=== PATIENT | female | born 1985 | race African-American/Black ===

== ENCOUNTER 2016-07-22 10:33 | Emergency (ER) | payer MEDICAID ==
[~2016-07-22] VITALS: Ht 167.6 cm; Wt 76.3 kg
[~2016-07-22 10:33] MED LIST: LURA40TA PO; QUET200T4 PO
[2016-07-22] MEDS ORDERED: FAMOTIDINE 20 MG/2 ML ONE (11:14)
[2016-07-22] MEDS ORDERED: ONDANSETRON 2MG/ML, 2ML ONE (11:14)
[2016-07-22] MEDS ORDERED: MAALOX/HYOSCYAMINE/LIDOCAINE 45 ML BOTTLE ONE (11:14)
[2016-07-22] MEDS ORDERED: ONDANSETRON 2MG/ML, 2ML IVPush ONE (11:30)
[2016-07-22] MEDS ORDERED: MAALOX/HYOSCYAMINE/LIDOCAINE 45 ML BOTTLE PO ONE (11:30)
[2016-07-22] MEDS ORDERED: FAMOTIDINE 20 MG/2 ML IVP ONE (11:30)
[2016-07-22 11:58] LABS: BLOOD UREA NITROGEN 8 mg/dL (7-18)
[2016-07-22 12:04] LABS: ASPARTATE AMINO TRANSFERASE 12 U/L (15-37)
[2016-07-22 12:49] VITALS: BP 96/65
== END 2016-07-22 12:51 | disposition home or self-care (01) ==
LOC: ED 10:57
DX: K29.00 Acute gastritis without bleeding (principal)
CPT/HCPCS: 36415; 76700; 80053; 81001; 83690; 84703; 85025; 96374; 96375; 99285; J2405; S0028

== ENCOUNTER 2016-08-01 11:16 | Emergency (ER) | payer MEDICAID ==
[~2016-08-01] VITALS: Ht 167.6 cm; Wt 75.3 kg
[2016-08-01] MEDS ORDERED: TRAZ50TA18 PO (11:55)
[2016-08-01 12:00] VITALS: BP 116/75
[2016-08-01] MEDS ORDERED: FAMOTIDINE 20 MG/2 ML IVP ONE (12:00)
[2016-08-01] MEDS ORDERED: SODIUM CHLORIDE FLUSH 10ML SYR IVF ONE (12:00)
[2016-08-01] MEDS ORDERED: ONDANSETRON 2MG/ML, 2ML IVPush ONE (12:00)
[2016-08-01] MEDS ORDERED: FAMOTIDINE 20 MG/2 ML ONE (12:05)
[2016-08-01] MEDS ORDERED: ONDANSETRON 2MG/ML, 2ML ONE (12:05)
[2016-08-01 12:21] LABS: PATH.CAST-FLAG NOT PRESENT; SPERM-FLAG NOT PRESENT; SRC-FLAG NOT PRESENT; XTAL-FLAG NOT PRESENT; YLC-FLAG NOT PRESENT
[2016-08-01 12:49] LABS: ASPARTATE AMINO TRANSFERASE 11 U/L (15-37); BLOOD UREA NITROGEN 5 mg/dL (7-18)
== END 2016-08-01 13:26 | disposition home or self-care (01) ==
LOC: ED 13:15
DX: K29.00 Acute gastritis without bleeding (principal); Z87.440 Personal history of urinary (tract) infections
CPT/HCPCS: 36415; 80053; 81001; 83690; 84703; 85025; 87086; 96374; 96375; 99284; J2405; S0028

== ENCOUNTER 2016-08-09 20:10 | Emergency (ER) | payer MEDICAID ==
[~2016-08-09] VITALS: Ht 167.6 cm; Wt 76.4 kg
[~2016-08-09 20:10] MED LIST changes: +TRAZ50TA18 PO
[2016-08-09 20:12] VITALS: BP 122/82
[2016-08-09] MEDS ORDERED: FAMOTIDINE 20 MG/2 ML IVP ONE (20:30)
[2016-08-09] MEDS ORDERED: ONDANSETRON 2MG/ML, 2ML IVPush ONE (20:30)
[2016-08-09] MEDS ORDERED: SODIUM CHLORIDE 0.9% 1,000ML IVBOLUS ONE (20:30)
[2016-08-09] MEDS ORDERED: MAALOX/HYOSCYAMINE/LIDOCAINE 45 ML BOTTLE PO ONE (20:30)
[2016-08-09] MEDS ORDERED: FAMOTIDINE 20 MG/2 ML ONE (20:31)
[2016-08-09] MEDS ORDERED: ONDANSETRON 2MG/ML, 2ML ONE (20:31)
[2016-08-09] MEDS ORDERED: MAALOX/HYOSCYAMINE/LIDOCAINE 45 ML BOTTLE ONE (20:31)
[2016-08-09 21:05] LABS: ASPARTATE AMINO TRANSFERASE 13 U/L (15-37); BLOOD UREA NITROGEN 5 mg/dL (7-18)
== END 2016-08-09 22:48 | disposition home or self-care (01) ==
LOC: ED 22:42
DX: K29.00 Acute gastritis without bleeding (principal); Z87.891 Personal history of nicotine dependence
CPT/HCPCS: 36415; 80053; 81001; 83690; 84703; 85025; 96361; 96374; 96375; 99285; J2405; J7030; S0028

== ENCOUNTER 2016-08-16 12:49 | Emergency (ER) | payer MEDICAID ==
[~2016-08-16] VITALS: Ht 167.6 cm; Wt 75.7 kg
[2016-08-16 12:52] VITALS: BP 128/81
[2016-08-16 13:56] LABS: HCG UR OBC PASS
== END 2016-08-16 14:50 | disposition home or self-care (01) ==
LOC: ED 14:45
DX: N30.00 Acute cystitis without hematuria (principal)
CPT/HCPCS: 81001; 81025; 87086; 99284

== ENCOUNTER 2016-08-21 20:55 | Emergency (ER) | payer MEDICAID ==
[~2016-08-21] VITALS: Ht 167.6 cm; Wt 62.0 kg
[2016-08-21 21:03] VITALS: BP 142/95
== END 2016-08-21 22:53 | disposition home or self-care (01) ==
LOC: ED 22:43
DX: T76.21XA Adult sexual abuse, suspected, initial encounter (principal); F20.9 Schizophrenia, unspecified; F17.200 Nicotine dependence, unspecified, uncomplicated; Y04.8XXA Assault by other bodily force, initial encounter; Y93.89 Activity, other specified; Y92.89 Other specified places as the place of occurrence of the external cause; Y99.8 Other external cause status
CPT/HCPCS: 99283

== ENCOUNTER 2016-09-03 18:04 | Emergency (ER) | payer MEDICAID | END 2016-09-03 21:24 | LOC: ED 18:04 | DX: N93.8 Other specified abnormal uterine and vaginal bleeding (principal); F20.9 Schizophrenia, unspecified | CPT/HCPCS: 99281 ==

== ENCOUNTER 2016-09-04 09:45 | Emergency (ER) | payer MEDICAID ==
[2016-09-06 08:53] LABS: RHEUMATOID FACTOR SCREEN NEGATIVE (NEGATIVE)
== END 2016-09-04 10:35 ==
LOC: ED 09:45
DX: O20.0 Threatened abortion (principal); Z3A.00 Weeks of gestation of pregnancy not specified
CPT/HCPCS: 36415; 84702; 86430; 99284

== ENCOUNTER 2016-09-11 16:35 | Emergency (ER) | payer MEDICAID ==
[~2016-09-11] VITALS: Ht 167.6 cm; Wt 74.2 kg
[2016-09-11] MEDS ORDERED: SODIUM CHLORIDE 0.9% 1,000ML IVBOLUS ONE (17:00)
[2016-09-11] MEDS ORDERED: SODIUM CHLORIDE FLUSH 10ML SYR IVF ONE (17:00)
[2016-09-11 17:39] LABS: ASPARTATE AMINO TRANSFERASE 11 U/L (15-37); BLOOD UREA NITROGEN 5 mg/dL (7-18)
[2016-09-11 18:07] LABS: GIANT PLATELETS 1+
[2016-09-11 19:23] VITALS: BP 120/75
== END 2016-09-11 19:27 | disposition home or self-care (01) ==
LOC: ED 19:00
DX: R10.30 Lower abdominal pain, unspecified (principal); Z85.42 Personal history of malignant neoplasm of other parts of uterus
CPT/HCPCS: 36415; 80053; 81001; 84703; 85025; 99284

== ENCOUNTER 2016-09-16 16:14 | Emergency (ER) | payer MEDICAID ==
[~2016-09-16] VITALS: Ht 167.6 cm; Wt 73.5 kg
[2016-09-16] MEDS ORDERED: MAALOX/HYOSCYAMINE/LIDOCAINE 45 ML BOTTLE ONE (17:22)
[2016-09-16] MEDS ORDERED: MAALOX/HYOSCYAMINE/LIDOCAINE 45 ML BOTTLE PO ONE (17:30)
[2016-09-16 17:36] LABS: ASPARTATE AMINO TRANSFERASE 12 U/L (15-37); BLOOD UREA NITROGEN 8 mg/dL (7-18)
[2016-09-16 18:42] VITALS: BP 115/68
== END 2016-09-16 18:48 | disposition home or self-care (01) ==
LOC: ED 17:15
DX: K29.50 Unspecified chronic gastritis without bleeding (principal)
CPT/HCPCS: 36415; 80053; 83690; 84703; 85025; 99284

== ENCOUNTER 2016-09-23 10:04 | Emergency (ER) | payer MEDICAID ==
[~2016-09-23] VITALS: Ht 167.6 cm; Wt 73.4 kg
[2016-09-23] MEDS ORDERED: MAALOX/HYOSCYAMINE/LIDOCAINE 45 ML BOTTLE PO ONE (11:00)
[2016-09-23] MEDS ORDERED: FAMOTIDINE 20 MG/2 ML IVPush ONE (11:00)
[2016-09-23 11:09] LABS: ASPARTATE AMINO TRANSFERASE 13 U/L (15-37); BLOOD UREA NITROGEN 7 mg/dL (7-18)
[2016-09-23] MEDS ORDERED: FAMOTIDINE 20 MG TABLET ONE (11:12)
[2016-09-23] MEDS ORDERED: MAALOX/HYOSCYAMINE/LIDOCAINE 45 ML BOTTLE ONE (11:12)
[2016-09-23] MEDS ORDERED: FAMOTIDINE 20 MG TABLET PO ONE (11:30)
[2016-09-23 13:38] VITALS: BP 118/76
== END 2016-09-23 13:44 | disposition home or self-care (01) ==
LOC: ED 10:29
DX: K29.00 Acute gastritis without bleeding (principal); F17.200 Nicotine dependence, unspecified, uncomplicated; K62.89 Other specified diseases of anus and rectum; F20.9 Schizophrenia, unspecified
CPT/HCPCS: 36415; 80053; 83690; 85025; 99284

== ENCOUNTER 2016-10-14 14:11 | Emergency (ER) | payer MEDICAID ==
[~2016-10-14] VITALS: Ht 167.6 cm; Wt 77.8 kg
[2016-10-14] MEDS ORDERED: ZOLP-413 PO (15:36)
[2016-10-14 16:20] VITALS: BP 120/50
== END 2016-10-14 16:59 | disposition home or self-care (01) ==
LOC: ED 16:03
DX: R30.0 Dysuria (principal)
CPT/HCPCS: 81001; 99283

== ENCOUNTER 2016-11-10 09:21 | Emergency (ER) | payer MEDICAID ==
[~2016-11-10] VITALS: Ht 167.6 cm; Wt 76.3 kg
[~2016-11-10 09:21] MED LIST changes: +ZOLP-413 PO
[2016-11-10 10:07] LABS: HEMATOCRIT 37.8 % (34.6-47.8); HEMOGLOBIN 12.3 g/dL (11.7-16.4); WHITE BLOOD COUNT 3.9 x10^3/uL (3.4-10)
[2016-11-10 10:14] LABS: ASPARTATE AMINO TRANSFERASE 11 U/L (15-37); BLOOD UREA NITROGEN 7 mg/dL (7-18)
[2016-11-10 12:14] VITALS: BP 115/71
== END 2016-11-10 12:51 | disposition home or self-care (01) ==
LOC: ED 09:35
DX: R10.2 Pelvic and perineal pain (principal)
CPT/HCPCS: 36415; 76857; 80053; 81001; 83690; 84703; 85025; 99285

== ENCOUNTER 2016-11-17 09:09 | Emergency (ER) | payer MEDICAID ==
[~2016-11-17] VITALS: Ht 167.6 cm; Wt 76.0 kg
[2016-11-17 10:58] LABS: HEMATOCRIT 39.1 % (34.6-47.8); HEMOGLOBIN 12.6 g/dL (11.7-16.4); WHITE BLOOD COUNT 3.6 x10^3/uL (3.4-10)
[2016-11-17 11:42] VITALS: BP 110/81
== END 2016-11-17 11:43 | disposition home or self-care (01) ==
LOC: ED 10:32
DX: K59.00 Constipation, unspecified (principal); Z90.710 Acquired absence of both cervix and uterus
CPT/HCPCS: 36415; 74176; 81001; 85025; 99285

== ENCOUNTER 2016-11-20 09:28 | Emergency (ER) | payer MEDICAID ==
[~2016-11-20] VITALS: Ht 167.6 cm; Wt 76.1 kg
[2016-11-20 09:29] VITALS: BP 112/72
== END 2016-11-20 10:38 | disposition home or self-care (01) ==
LOC: ED 09:42
DX: K92.1 Melena (principal); F20.9 Schizophrenia, unspecified; Z85.9 Personal history of malignant neoplasm, unspecified
CPT/HCPCS: 99281; 99283

== ENCOUNTER 2016-12-09 14:42 | Emergency (ER) | payer MEDICAID ==
[~2016-12-09] VITALS: Ht 167.6 cm; Wt 77.5 kg
[2016-12-09 15:35] LABS: HEMATOCRIT 37.9 % (34.6-47.8); HEMOGLOBIN 12.6 g/dL (11.7-16.4); WHITE BLOOD COUNT 5.7 x10^3/uL (3.4-10)
[2016-12-09 15:44] LABS: BLOOD UREA NITROGEN 7 mg/dL (7-18)
[2016-12-09 16:34] VITALS: BP 120/88
== END 2016-12-09 16:36 | disposition home or self-care (01) ==
LOC: ED 15:14
DX: N30.00 Acute cystitis without hematuria (principal)
CPT/HCPCS: 36415; 76830; 80048; 81001; 82040; 84703; 85025; 87086; 99285

== ENCOUNTER 2017-03-09 10:51 | Emergency (ER) | payer MEDICAID ==
[~2017-03-09] VITALS: Ht 167.6 cm; Wt 88.6 kg
[2017-03-09 10:52] VITALS: BP 128/87
[2017-03-09 13:25] LABS: HCG UR LOT HCG7030192
[2017-03-09 13:40] LABS: HCG UR OBC PASS
[2017-03-09] MEDS ORDERED: ACETAMINOPHEN 325 MG TABLET ONE (14:11)
[2017-03-09] MEDS ORDERED: ACETAMINOPHEN 325 MG TABLET PO ONE (14:30)
== END 2017-03-09 14:29 | disposition home or self-care (01) ==
LOC: ED 13:25
DX: R10.30 Lower abdominal pain, unspecified (principal)
CPT/HCPCS: 81001; 81025; 99284

== ENCOUNTER 2017-12-22 11:48 | Emergency (ER) | payer MEDICAID, OTHER ==
[~2017-12-22] VITALS: Ht 167.6 cm; Wt 94.4 kg
[~2017-12-22 11:48] MED LIST changes: +TRAZ-136 PO; -TRAZ50TA18 PO
[2017-12-22 11:53] VITALS: BP 130/79
[2017-12-22 12:29] LABS: MICROSCOPIC AUTO
[2017-12-22 12:32] LABS: CULTURE INDICATED? NO
== END 2017-12-22 13:09 | disposition home or self-care (01) ==
LOC: ED 13:00
DX: B35.6 Tinea cruris (principal); F20.9 Schizophrenia, unspecified; R73.09 Other abnormal glucose; Z85.9 Personal history of malignant neoplasm, unspecified; Z90.710 Acquired absence of both cervix and uterus
CPT/HCPCS: 81001; 82962; 99283

== ENCOUNTER 2018-01-09 10:11 | Emergency (ER) | payer MEDICAID ==
[~2018-01-09] VITALS: Ht 167.6 cm; Wt 93.5 kg
[2018-01-09 10:17] VITALS: BP 122/85
== END 2018-01-09 11:52 | disposition home or self-care (01) ==
LOC: ED 10:29
DX: B35.6 Tinea cruris (principal); L03.115 Cellulitis of right lower limb; F20.9 Schizophrenia, unspecified; Z90.710 Acquired absence of both cervix and uterus
CPT/HCPCS: 99283

== ENCOUNTER 2018-01-12 18:35 | Emergency (ER) | payer MEDICAID ==
[~2018-01-12] VITALS: Ht 167.6 cm; Wt 93.2 kg
[2018-01-12 18:52] VITALS: BP 117/98
== END 2018-01-12 19:53 | disposition home or self-care (01) ==
LOC: ED 19:14
DX: B36.9 Superficial mycosis, unspecified (principal); H62.43 Otitis externa in other diseases classified elsewhere, bilateral; H61.23 Impacted cerumen, bilateral
CPT/HCPCS: 69209; 99283

== ENCOUNTER 2018-01-27 12:12 | Emergency (ER) | payer MEDICAID ==
[~2018-01-27] VITALS: Ht 167.6 cm; Wt 91.7 kg
[2018-01-27 12:46] LABS: BASOPHILS # (AUTO) 0.02 x10^3/uL (0-0.1); BASOPHILS % (AUTO) 0 % (0-1); EOSINOPHILS # (AUTO) 0.07 x10^3/uL (0-0.4); EOSINOPHILS % (AUTO) 2 % (1-7); LYMPHOCYTES % (AUTO) 43 % (22-44); MD NO; MEAN CORPUSCULAR HEMOGLOBIN 28.2 pg (27.0-34.8); MEAN CORPUSCULAR HGB CONC 32.5 g/dL (32.4-35.8); MEAN CORPUSCULAR VOLUME 86.7 fL (80-100); MEAN PLATELET VOLUME 9.3 fL (7.4-10.4); MONOCYTES # (AUTO) 0.41 x10^3/uL (0.2-0.8); MONOCYTES % (AUTO) 9 % (2-9); NEUTROPHILS # (AUTO) 2.14 x10^3/uL (1.8-6.8); NEUTROPHILS % (AUTO) 46 % (42-75); PLATELET COUNT 254 x10^3/uL (130-400); RED BLOOD COUNT 4.73 x10^6/uL (3.82-5.3); RED CELL DISTRIBUTION WIDTH 12.6 % (9.6-15.2)
[2018-01-27 12:56] LABS: ALANINE AMINOTRANSFERASE 21 U/L (12-78); ALBUMIN 3.8 g/dL (3.4-5.0); ANION GAP 7 mmol/L (5-15); CALCIUM 8.8 mg/dL (8.5-10.1); CHLORIDE 107 mmol/L (98-107)
[2018-01-27 12:58] LABS: ALKALINE PHOSPHATASE 106 U/L (45-117); BILIRUBIN,TOTAL 0.3 mg/dL (0.2-1.0); TOTAL PROTEIN 8.3 g/dL (6.4-8.2)
[2018-01-27 15:48] LABS: HCG UR SG 1.021 (1.003-1.030); MICROSCOPIC NOT IND
[2018-01-27 15:58] LABS: CULTURE INDICATED? NO
[2018-01-27] MEDS ORDERED: [UNRECOGNIZED DRUG - REMARK] (16:19)
[2018-01-27 17:18] VITALS: BP 127/74
== END 2018-01-27 18:11 | disposition home or self-care (01) ==
LOC: ED 14:55
DX: R10.2 Pelvic and perineal pain (principal)
CPT/HCPCS: 36415; 74176; 80053; 81003; 81025; 85025; 99285

== ENCOUNTER 2018-02-22 12:38 | Emergency (ER) | payer MEDICAID ==
[~2018-02-22] VITALS: Ht 167.6 cm; Wt 90.3 kg
[~2018-02-22 12:38] MED LIST changes: +[UNRECOGNIZED DRUG - REMARK]
[2018-02-22 13:44] LABS: MEAN CORPUSCULAR HEMOGLOBIN 27.9 pg (27.0-34.8); MEAN CORPUSCULAR HGB CONC 32.6 g/dL (32.4-35.8); MEAN CORPUSCULAR VOLUME 85.6 fL (80-100); MEAN PLATELET VOLUME 9.4 fL (7.4-10.4); PLATELET COUNT 246 x10^3/uL (130-400); RED BLOOD COUNT 4.78 x10^6/uL (3.82-5.3); RED CELL DISTRIBUTION WIDTH 13.4 % (9.6-15.2)
[2018-02-22 13:55] LABS: ALBUMIN 3.9 g/dL (3.4-5.0); ANION GAP 4 mmol/L (5-15); CHLORIDE 109 mmol/L (98-107)
[2018-02-22 13:59] LABS: BASOPHILS # (AUTO) 0.02 x10^3/uL (0-0.1); BASOPHILS % (AUTO) 1 % (0-1); EOSINOPHILS # (AUTO) 0.11 x10^3/uL (0-0.4); EOSINOPHILS % (AUTO) 3 % (1-7); LYMPHOCYTES # (AUTO) 2.26 x10^3/uL (1-3.4); LYMPHOCYTES % (AUTO) 56 % (22-44); MD SCAN; MONOCYTES # (AUTO) 0.52 x10^3/uL (0.2-0.8); MONOCYTES % (AUTO) 13 % (2-9); NEUTROPHILS # (AUTO) 1.16 x10^3/uL (1.8-6.8); NEUTROPHILS % (AUTO) 28 % (42-75)
[2018-02-22 14:01] LABS: ALANINE AMINOTRANSFERASE 25 U/L (12-78); ALKALINE PHOSPHATASE 101 U/L (45-117); BILIRUBIN,TOTAL 0.3 mg/dL (0.2-1.0); CREATININE 1.12 mg/dL (0.55-1.02); TOTAL PROTEIN 8.4 g/dL (6.4-8.2)
[2018-02-22 15:43] LABS: MICROSCOPIC INDICATED
[2018-02-22 15:49] LABS: CULTURE INDICATED? NO
[2018-02-22] MEDS ORDERED: OMNIPAQUE 350 MG/ML, 100ML BOTTLE ONE (15:50)
[2018-02-22 17:09] VITALS: BP 136/85
== END 2018-02-22 18:31 | disposition home or self-care (01) ==
LOC: ED 18:26
DX: R10.31 Right lower quadrant pain (principal); R10.32 Left lower quadrant pain; R10.30 Lower abdominal pain, unspecified; Z90.710 Acquired absence of both cervix and uterus; F20.9 Schizophrenia, unspecified
CPT/HCPCS: 36415; 74177; 80053; 81001; 84703; 85025; 99284; Q9967

== ENCOUNTER 2018-02-23 13:31 | Emergency (ER) | payer MEDICAID ==
[~2018-02-23] VITALS: Ht 167.6 cm; Wt 88.9 kg
[2018-02-23 13:45] VITALS: BP 132/77
[2018-02-23] MEDS ORDERED: LORazepam 1MG TABLET PO ONE (14:30)
[2018-02-23] MEDS ORDERED: LORazepam 1MG TABLET ONE (14:46)
== END 2018-02-23 16:32 | disposition home or self-care (01) ==
LOC: ED 14:16
DX: F41.1 Generalized anxiety disorder (principal); F20.9 Schizophrenia, unspecified; Z90.710 Acquired absence of both cervix and uterus
CPT/HCPCS: 99284

== ENCOUNTER 2018-04-06 10:24 | Emergency (ER) | payer MEDICAID ==
[~2018-04-06] VITALS: Ht 167.6 cm; Wt 86.4 kg
[~2018-04-06 10:24] MED LIST changes: -TRAZ-136 PO; +TRAZ50TA66 PO
[2018-04-06 10:32] VITALS: BP 124/89
[2018-04-06] MEDS ORDERED: MAALOX/HYOSCYAMINE/LIDOCAINE 45 ML BTL ONE (10:53)
[2018-04-06] MEDS ORDERED: ONDANSETRON ODT 4 MG ONE (10:54)
--- NOTE | 2018-04-06 11:00 | NUR ---
MEDICATED PT ORDERED BY MD FOR ABDOMINAL PAIN. URINE AND BLOODWORK SENT TO LAB. CALL LIGHT IS WITHIN REACH, NAD NOTED.
[2018-04-06 11:27] LABS: ALANINE AMINOTRANSFERASE 19 U/L (12-78); ALBUMIN 3.6 g/dL (3.4-5.0); ANION GAP 10 mmol/L (5-15); CALCIUM 8.4 mg/dL (8.5-10.1); CHLORIDE 108 mmol/L (98-107); CREATININE 1.11 mg/dL (0.55-1.02)
[2018-04-06] MEDS ORDERED: ONDANSETRON ODT 4 MG PO ONE (11:30)
[2018-04-06] MEDS ORDERED: MAALOX/HYOSCYAMINE/LIDOCAINE 45 ML BTL PO ONE (11:30)
[2018-04-06 11:32] LABS: ALKALINE PHOSPHATASE 78 U/L (45-117); BILIRUBIN,TOTAL 0.4 mg/dL (0.2-1.0); TOTAL PROTEIN 7.5 g/dL (6.4-8.2)
[2018-04-06 11:48] LABS: MICROSCOPIC INDICATED
[2018-04-06 11:50] LABS: BASOPHILS # (AUTO) 0.02 x10^3/uL (0-0.1); BASOPHILS % (AUTO) 1 % (0-1); EOSINOPHILS # (AUTO) 0.06 x10^3/uL (0-0.4); EOSINOPHILS % (AUTO) 2 % (1-7); LYMPHOCYTES # (AUTO) 1.64 x10^3/uL (1-3.4); LYMPHOCYTES % (AUTO) 52 % (22-44); MD SCAN; MEAN CORPUSCULAR HEMOGLOBIN 28.5 pg (27.0-34.8); MEAN CORPUSCULAR HGB CONC 33.5 g/dL (32.4-35.8); MEAN CORPUSCULAR VOLUME 85.1 fL (80-100); MEAN PLATELET VOLUME 9.3 fL (7.4-10.4); MONOCYTES # (AUTO) 0.39 x10^3/uL (0.2-0.8); MONOCYTES % (AUTO) 12 % (2-9); NEUTROPHILS # (AUTO) 1.06 x10^3/uL (1.8-6.8); NEUTROPHILS % (AUTO) 33 % (42-75); PLATELET COUNT 221 x10^3/uL (130-400); RED BLOOD COUNT 4.77 x10^6/uL (3.82-5.3); RED CELL DISTRIBUTION WIDTH 12.9 % (9.6-15.2)
[2018-04-06 11:56] LABS: CULTURE INDICATED? YES
--- NOTE | 2018-04-06 13:17 | NUR ---
PT PRESENTED TO ED WITH MID EPIGASTRIC ABD PAIN X 3 DAYS. PT STATES " WHENEVER I DRINK COFFEE, I VOMIT UP BLACK STUFF." RECEIVED REPORT FROM NADEGE NEWMAN.
== END 2018-04-06 14:24 | disposition home or self-care (01) ==
LOC: ED 10:48
DX: K29.00 Acute gastritis without bleeding (principal)
CPT/HCPCS: 36415; 76700; 80053; 81001; 83690; 84703; 85025; 87086; 99284; Q0162

== ENCOUNTER 2018-04-11 13:35 | Emergency (ER) | payer MEDICAID ==
[~2018-04-11] VITALS: Ht 167.6 cm; Wt 85.0 kg
--- NOTE | 2018-04-11 15:35 | NUR ---
PT TO ROOM FROM LOBBY
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
[2018-04-11 15:51] VITALS: BP 140/60
--- NOTE | 2018-04-11 15:51 | NUR ---
PT PREFERS TO ONLY LET PROVIDER LOOK AT [facility]
--- NOTE | 2018-04-11 15:52 | NUR ---
NO C/O DYSURIA OR DIFFICULTIES WITH URINATION
--- NOTE | 2018-04-11 17:14 | NUR ---
Patient/Caregiver given discharge instructions and they have confirmed that they understand the instructions. Patient ambulatory with steady gait. PT LEFT WITH ALL PERSONAL BELONGINGS.
== END 2018-04-11 17:16 | disposition home or self-care (01) ==
LOC: ED 16:21
DX: B37.3 Candidiasis of vulva and vagina (principal); B35.6 Tinea cruris
CPT/HCPCS: 99283

== ENCOUNTER 2018-04-25 12:00 | Emergency (ER) | payer MEDICAID ==
[~2018-04-25] VITALS: Ht 167.6 cm; Wt 87.1 kg
[2018-04-25 12:08] VITALS: BP 121/88
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
[2018-04-25] MEDS ORDERED: ACETAMINOPHEN 325 MG TABLET PO ONE (12:30)
[2018-04-25] MEDS ORDERED: CLON0.5T11 PO (12:33)
[2018-04-25] MEDS ORDERED: SERT25TA3 PO (12:33)
--- NOTE | 2018-04-25 12:44 | NUR ---
Patient/Caregiver given discharge instructions and they have confirmed that they understand the instructions. Patient ambulatory with steady gait.
[2018-04-25] MEDS ORDERED: ACETAMINOPHEN 325 MG TABLET ONE (12:47)
== END 2018-04-25 12:52 | disposition home or self-care (01) ==
LOC: ED 12:30
DX: M71.552 Other bursitis, not elsewhere classified, left hip (principal); I10 Essential (primary) hypertension
CPT/HCPCS: 99283; J7512

== ENCOUNTER 2018-04-29 12:02 | Emergency (ER) | payer MEDICAID ==
[~2018-04-29] VITALS: Ht 167.6 cm; Wt 88.8 kg
[~2018-04-29 12:02] MED LIST changes: +CLON0.5T11 PO; +SERT25TA3 PO
[2018-04-29 12:06] VITALS: BP 157/91
[2018-04-29 12:51] LABS: CULTURE INDICATED? NO; HCG UR SG 1.011 (1.003-1.030); MICROSCOPIC NOT IND
[2018-04-29] MEDS ORDERED: CEFTRIAXONE 250 MG ONE (13:14)
[2018-04-29] MEDS ORDERED: AZITHROMYCIN 250 MG TABLET ONE (13:15)
[2018-04-29] MEDS ORDERED: CEFTRIAXONE 250 MG IM ONE (13:30)
[2018-04-29] MEDS ORDERED: AZITHROMYCIN 250 MG TABLET PO ONE (13:30)
== END 2018-04-29 13:35 | disposition home or self-care (01) ==
LOC: ED 13:30
DX: R30.0 Dysuria (principal); I10 Essential (primary) hypertension; F20.9 Schizophrenia, unspecified; Z87.891 Personal history of nicotine dependence
CPT/HCPCS: 81003; 81025; 87491; 87591; 96372; 99283; J0696

== ENCOUNTER 2018-05-18 10:38 | Emergency (ER) | payer MEDICAID ==
[~2018-05-18] VITALS: Ht 167.6 cm; Wt 87.0 kg
[2018-05-18 10:46] VITALS: BP 127/83
[2018-05-18] MEDS ORDERED: SEROQUEL PO (11:03)
[2018-05-18] MEDS ORDERED: BP MED PO (11:03)
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
--- NOTE | 2018-05-18 11:19 | NUR ---
DR COY AT BEDSIDE. POC DISCUSSED, ORDERS REC'D
[2018-05-18] MEDS ORDERED: ACETAMINOPHEN 500 MG TABLET ONE (11:22)
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
[2018-05-18] MEDS ORDERED: ACETAMINOPHEN 500 MG TABLET PO ONE (11:30)
--- NOTE | 2018-05-18 12:34 | NUR ---
Patient/Caregiver given discharge instructions and they have confirmed that they understand the instructions. Patient ambulatory with slight limp noted otherwise a steady gait.
== END 2018-05-18 12:35 | disposition home or self-care (01) ==
LOC: ED 11:03
DX: S70.12XA Contusion of left thigh, initial encounter (principal); I10 Essential (primary) hypertension; W50.1XXA Accidental kick by another person, initial encounter; Y93.89 Activity, other specified; Y92.89 Other specified places as the place of occurrence of the external cause; Y99.8 Other external cause status
CPT/HCPCS: 72170; 99283

== ENCOUNTER 2018-05-26 10:44 | Emergency (ER) | payer MEDICAID ==
[~2018-05-26] VITALS: Ht 167.6 cm; Wt 88.9 kg
[~2018-05-26 10:44] MED LIST changes: +BP MED PO; +SEROQUEL PO
[2018-05-26 11:47] LABS: BASOPHILS # (AUTO) 0.02 x10^3/uL (0-0.1); BASOPHILS % (AUTO) 1 % (0-1); EOSINOPHILS # (AUTO) 0.07 x10^3/uL (0-0.4); EOSINOPHILS % (AUTO) 2 % (1-7); LYMPHOCYTES # (AUTO) 2.01 x10^3/uL (1-3.4); LYMPHOCYTES % (AUTO) 49 % (22-44); MD NO; MEAN CORPUSCULAR HEMOGLOBIN 28.1 pg (27.0-34.8); MEAN CORPUSCULAR HGB CONC 32.7 g/dL (32.4-35.8); MEAN PLATELET VOLUME 9.1 fL (7.4-10.4); MONOCYTES # (AUTO) 0.41 x10^3/uL (0.2-0.8); MONOCYTES % (AUTO) 10 % (2-9); NEUTROPHILS # (AUTO) 1.62 x10^3/uL (1.8-6.8); NEUTROPHILS % (AUTO) 39 % (42-75); PLATELET COUNT 228 x10^3/uL (130-400); RED BLOOD COUNT 4.65 x10^6/uL (3.82-5.3); RED CELL DISTRIBUTION WIDTH 13.3 % (9.6-15.2)
--- NOTE | 2018-05-26 11:50 | NUR ---
Pt to 40 from lobby
--- NOTE | 2018-05-26 11:51 | NUR ---
patient arrives to er with reports of weakness for two days. no chest pain. no sob. she is walking well and putting on her gown with good dexterity. patient got in bed, on montor, rails up. patient tearful because she is concerned with new onset weakness.
[2018-05-26 11:53] LABS: MICROSCOPIC INDICATED
[2018-05-26 12:06] LABS: ALBUMIN 3.5 g/dL (3.4-5.0); ANION GAP 5 mmol/L (5-15); CALCIUM 8.5 mg/dL (8.5-10.1); CHLORIDE 109 mmol/L (98-107); CREATININE 0.96 mg/dL (0.55-1.02)
--- NOTE | 2018-05-26 13:02 | NUR ---
patient labs taken, and urine in lab. patient awaiting er workup
[2018-05-26 13:03] VITALS: BP 132/78
--- NOTE | 2018-05-26 13:04 | NUR ---
patient discharge instructions reviewed, patient shows understanding.
--- NOTE | 2018-05-26 13:25 | NUR ---
Patient given discharge instructions and they have confirmed that they understand the instructions. Patient ambulatory with steady gait.
== END 2018-05-26 13:26 | disposition home or self-care (01) ==
LOC: ED 11:54
DX: R53.1 Weakness (principal); I10 Essential (primary) hypertension; F20.9 Schizophrenia, unspecified
CPT/HCPCS: 36415; 80048; 81001; 82040; 85025; 93005; 99284

== ENCOUNTER 2018-07-27 13:16 | Emergency (ER) | payer MEDICAID ==
[~2018-07-27] VITALS: Ht 167.6 cm; Wt 91.8 kg
[2018-07-27] MEDS ORDERED: FAMOTIDINE 20 MG TABLET ONE (13:51)
[2018-07-27] MEDS ORDERED: MAALOX/HYOSCYAMINE/LIDOCAINE 45 ML BTL ONE (13:51)
[2018-07-27 13:55] VITALS: BP 126/81
[2018-07-27 13:59] LABS: MEAN CORPUSCULAR HEMOGLOBIN 28.2 pg (27.0-34.8); MEAN CORPUSCULAR HGB CONC 32.8 g/dL (32.4-35.8); MEAN CORPUSCULAR VOLUME 86.1 fL (80-100); PLATELET COUNT 249 x10^3/uL (130-400); RED CELL DISTRIBUTION WIDTH 12.8 % (9.6-15.2)
--- NOTE | 2018-07-27 13:59 | NUR ---
PT MEDICATED PER ORDERS. UNDERSTANDS POC. US AT BS.
[2018-07-27] MEDS ORDERED: MAALOX/HYOSCYAMINE/LIDOCAINE 45 ML BTL PO ONE (14:00)
[2018-07-27] MEDS ORDERED: FAMOTIDINE 20 MG TABLET PO ONE (14:00)
[2018-07-27 14:03] LABS: MICROSCOPIC NOT IND
[2018-07-27 14:05] LABS: ALANINE AMINOTRANSFERASE 24 U/L (12-78); ALBUMIN 3.7 g/dL (3.4-5.0); ANION GAP 8 mmol/L (5-15); CALCIUM 8.5 mg/dL (8.5-10.1); CHLORIDE 105 mmol/L (98-107); CREATININE 1.07 mg/dL (0.55-1.02)
[2018-07-27 14:05] LABS: CULTURE INDICATED? NO
[2018-07-27 14:08] LABS: ALKALINE PHOSPHATASE 105 U/L (45-117); BILIRUBIN,TOTAL 0.3 mg/dL (0.2-1.0); TOTAL PROTEIN 7.8 g/dL (6.4-8.2)
[2018-07-27 14:22] LABS: BASOPHILS # (AUTO) 0.03 x10^3/uL (0-0.1); BASOPHILS % (AUTO) 1 % (0-1); EOSINOPHILS # (AUTO) 0.05 x10^3/uL (0-0.4); EOSINOPHILS % (AUTO) 1 % (1-7); LYMPHOCYTES # (AUTO) 1.48 x10^3/uL (1-3.4); LYMPHOCYTES % (AUTO) 26 % (22-44); MD SCAN; MONOCYTES # (AUTO) 0.33 x10^3/uL (0.2-0.8); MONOCYTES % (AUTO) 6 % (2-9); NEUTROPHILS # (AUTO) 3.74 x10^3/uL (1.8-6.8); NEUTROPHILS % (AUTO) 67 % (42-75)
--- NOTE | 2018-07-27 15:12 | NUR ---
TASK RN: Discharge instructions discussed with patient, questions answered. Prescriptions provided to patient with instruction for use, patient verbalizes understanding of all instruction provided. Patient ambulates with steady gait to discharge desk in no acute distress.
== END 2018-07-27 15:15 | disposition home or self-care (01) ==
LOC: ED 13:28
DX: K29.00 Acute gastritis without bleeding (principal)
CPT/HCPCS: 36415; 76700; 80053; 81003; 81025; 83690; 85025; 99284

== ENCOUNTER 2018-08-16 13:17 | Emergency (ER) | payer MEDICAID ==
[~2018-08-16] VITALS: Ht 167.6 cm; Wt 93.2 kg
[2018-08-16 15:05] LABS: ANION GAP 2 mmol/L (5-15); CHLORIDE 109 mmol/L (98-107); CREATININE 1.04 mg/dL (0.55-1.02); HIGH-SENSITIVITY CRP 0.55 mg/dL (0.02-0.30)
[2018-08-16 15:16] LABS: BASOPHILS # (AUTO) 0.01 x10^3/uL (0-0.1); BASOPHILS % (AUTO) 0 % (0-1); EOSINOPHILS # (AUTO) 0.04 x10^3/uL (0-0.4); EOSINOPHILS % (AUTO) 1 % (1-7); LYMPHOCYTES # (AUTO) 1.98 x10^3/uL (1-3.4); LYMPHOCYTES % (AUTO) 46 % (22-44); MD NO; MEAN CORPUSCULAR HEMOGLOBIN 28.5 pg (27.0-34.8); MEAN CORPUSCULAR HGB CONC 32.5 g/dL (32.4-35.8); MEAN CORPUSCULAR VOLUME 87.7 fL (80-100); MEAN PLATELET VOLUME 9.2 fL (7.4-10.4); MONOCYTES # (AUTO) 0.39 x10^3/uL (0.2-0.8); MONOCYTES % (AUTO) 9 % (2-9); NEUTROPHILS # (AUTO) 1.91 x10^3/uL (1.8-6.8); NEUTROPHILS % (AUTO) 44 % (42-75); PLATELET COUNT 269 x10^3/uL (130-400); RED BLOOD COUNT 4.66 x10^6/uL (3.82-5.3)
--- NOTE | 2018-08-16 15:34 | NUR ---
CALLED CT TO FIND OUT PLACE IN LINE OF PT. CT CONTROL STATED SHE IS NEXT IN LINE
[2018-08-16] MEDS ORDERED: OMNIPAQUE 350 MG/ML, 100ML BOTTLE ONE (15:59)
[2018-08-16 16:49] VITALS: BP 119/71
[2018-08-16 16:54] LABS: HCT (SEDRATE) 40.9 % (34.6-47.8)
== END 2018-08-16 17:20 | disposition home or self-care (01) ==
LOC: ED 14:18
DX: G89.11 Acute pain due to trauma (principal); M25.552 Pain in left hip; I10 Essential (primary) hypertension; X58.XXXA Exposure to other specified factors, initial encounter; Y93.89 Activity, other specified; Y92.89 Other specified places as the place of occurrence of the external cause; Y99.8 Other external cause status
CPT/HCPCS: 36415; 73701; 80048; 85025; 85651; 86141; 99284; Q9967